=== PATIENT | female | born 1975 | race Caucasian/White ===

== ENCOUNTER → 2025-02-11 09:17 | Outpatient (BNVA) | payer BC, SELFPAY | PROVIDERS: Visit Provider Nurse Practitioner Family | DX: Z79.899 Other long term (current) drug therapy (principal); R53.82 Chronic fatigue, unspecified; Z13.6 Encounter for screening for cardiovascular disorders; D64.9 Anemia, unspecified | CPT/HCPCS: 80053; 80061; 81003; 82306; 82607; 82728; 83036; 83550; 84439; 84443; 85025; 86038 ==

== ENCOUNTER 2025-03-10 10:39 | Outpatient (CLI) | payer BC, SELFPAY ==
--- NOTE | 2025-03-10 10:40 | MM_ITS ---
WS: [id number] BILATERAL 3D TOMOSYNTHESIS DIGITAL SCREENING MAMMOGRAPHY WITH CAD CLINICAL INFORMATION: Z12.31 - Encounter for screening mammogram for malignant ... HISTORY: Screening mammogram. No current complaints. COMPARISON: Baseline TECHNIQUE: Bilateral CC and MLO views. FINDINGS: The breasts are composed of heterogeneous fibroglandular density tissue, which can limit the detection of small underlying mass lesions. No suspicious mass, asymmetry, calcifications, or architectural distortion. No evidence of malignancy. A few incidental punctate calcifications. Small calcified nodule central RIGHT breast likely involuting fibroadenoma MM/MM [facility] tomosynthesis [id number] IMPRESSION: DENSITY: The breasts are heterogeneously dense, which may obscure small masses. BI-RADS: 2 - Benign FOLLOW UP: 1 Year Follow-up Recommend return to annual screening mammography.
== END 2025-03-10 10:40 | disposition home or self-care (01) ==
PROVIDERS: PCP Nurse Practitioner Family; Visit Provider Nurse Practitioner Family
DX: Z12.31 Encounter for screening mammogram for malignant neoplasm of breast (principal); R92.333 Mammographic heterogeneous density, bilateral breasts
CPT/HCPCS: 77063; 77067